=== PATIENT | female | born 1975 | race Two or more races ===

== ENCOUNTER 2016-06-04 14:27 | Emergency (ER) | payer MEDICAID, OTHER ==
[~2016-06-04] VITALS: Ht 154.9 cm; Wt 72.6 kg
--- NOTE | 2016-06-04 14:52 | Emergency Room Report ---
History of Present Illness General Chief Complaint: Upper Extremity Injury Source: Patient Present Illness HPI Patient is a 41-year-old female presented after having increased left upper extremity pain. Patient was noted to have increased pain to her left elbow after falling down stairs and landing on her left side. Patient had increased pain to her left elbow as well as to her left shoulder. She denies any loss of consciousness. She denies any neck or back pain. 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 Allergies: Uncoded Allergies: PENICILLIN (Allergy, Unknown, 06/04/16) Patient History Past Medical History: see triage record Last Menstrual Period: 06/03/16 Reviewed Nursing Documentation: PMH: Agreed, PSxH: Agreed Nursing Documentation-PMH Past Medical History: No History, Except For Hx Cardiac Problems: Yes - high chol Review of Systems All Other Systems: negative except mentioned in HPI Physical Exam Vital Signs Date Time Temp Pulse Resp B/P Pulse Ox O2 Delivery O2 Flow Rate FiO2 06/04/16 14:38 98.1 80 17 132/83 100 Room Air General Appearance: well appearing, no apparent distress, alert, GCS 15 Head: normocephalic, atraumatic ENT: hearing grossly normal, normal voice Neck: full range of motion, supple Respiratory: no respiratory distress, speaking full sentences Cardiovascular #1: normal inspection, regular rate, rhythm Gastrointestinal: normal inspection, normal bowel sounds, non tender, soft Musculoskeletal: back normal, digits/nails normal, no calf tenderness, other - tenderness over lateral mallleolus, decreased ROM Neurologic: normal inspection, alert, oriented x3, responsive, normal gait Psychiatric: mood/affect normal Skin: no rash Medical Decision Making ER Course The patient presented for left elbow pain. Differential diagnosis included but was not limited to fracture, contusion, vascular insufficiency, aortic aneurysm , cellulitis.X-ray imaging of the left shoulder left elbow and forearm are obtained. X-ray imaging of the left elbow 3 views interpreted by radiology showed no definite fracture with normal bony alignment. The patient was placed in a posterior splint. She is advised followup with workers comp physician. Patient placed on modified work. She is advised not to use her left upper extremity. Patient is advised to return if she had any numbness weakness or other concerns. Last Vital Signs Date Time Temp Pulse Resp B/P Pulse Ox O2 Delivery O2 Flow Rate FiO2 3/15/17 14:38 98.1 80 17 132/83 100 Room Air Status: improved Disposition: HOME, SELF-CARE Condition: Stable Scripts Ibuprofen* (MOTRIN*) 600 Mg Tablet 600 MG ORAL Q8H Y for For Pain, #30 TAB 0 Refills Prov: Guzman Dallas 06/04/16 Hydrocodone Bit/Acetaminophen 5-325* (NORCO 5-325*) 1 Each Tablet 1 TAB ORAL Q6H Y for For Pain, #20 TAB 0 Refills Prov: Guzman Dallas 06/04/16 Guzman Dallas Jun 04, 2016 14:52
[2016-06-04] MEDS ORDERED: Norco 5mg/325mg tab ORAL ONE (16:00)
[2016-06-04 16:20] VITALS: BP 136/84
--- NOTE | 2016-06-04 16:21 | Diagnostic Imaging Report ---
Indication: PAIN Technique: 3 views of the left shoulder Comparison: None Findings: No acute fractures or dislocations. Joint spaces are preserved. Impression: Negative
--- NOTE | 2016-06-04 16:22 | Diagnostic Imaging Report ---
Indications: PAIN Technique: Two views of the forearm Comparison: None Findings: No acute fractures or dislocations. No radiopaque foreign body. Normal mineralization. Impression: Negative
--- NOTE | 2016-06-04 16:24 | Diagnostic Imaging Report ---
Indications:PAIN Technique: Three or 4 views of the left elbow Comparison: None Findings:Exam is limited, as the lateral view is not a true lateral. No gross joint effusion demonstrated. There is equivocal slight widening of the radiohumeral joint. No definite acute fractures. Impression:Suggestion of slight widening of the radiohumeral joint. Significance uncertain, could indicate subluxation. Limited exam, as lack of true lateral view precludes confident exclusion of a joint effusion, although no definite evidence of such is seen No definite acute bony trauma
[2016-06-04] MEDS ORDERED: IBUPROFEN600 MG ORAL (17:14)
[2016-06-04] MEDS ORDERED: NORCO 5-325 TA1 EACH ORAL (17:14)
[2016-06-04 17:38] VITALS: BP 136/84
== END 2016-06-04 17:40 | disposition home or self-care (01) ==
LOC: EMR 16:47
DX: M25.522 Pain in left elbow (principal); M25.512 Pain in left shoulder; Z88.0 Allergy status to penicillin; E78.00 Pure hypercholesterolemia, unspecified; M79.632 Pain in left forearm
CPT/HCPCS: 99284

== ENCOUNTER 2016-06-09 19:27 | Emergency (ER) | payer OTHER ==
[~2016-06-09] VITALS: Ht 157.5 cm; Wt 72.6 kg
[~2016-06-09 19:27] MED LIST: IBUPROFEN600 MG ORAL; NORCO 5-325 TA1 EACH ORAL
[2016-06-09 21:30] VITALS: BP 123/70
--- NOTE | 2016-06-09 22:26 | Emergency Room Report ---
History of Present Illness General Chief Complaint: Upper Extremity Injury Source: Patient, Medical Record ([facility]REW VEGAS P[facility]) Present Illness HPI The patient is a 41-year-old female presenting with continued left elbow pain which began 5 days prior after falling onto the elbow. The patient was seen in this emergency department for x-rays were done and patient was diagnosed with an elbow contusion. The patient was placed in a sling and given pain medications and told to follow up with workers compensation. The patient has not followed up with workers compensation ([facility]GAS P[facility] Allergies: Uncoded Allergies: PENICILLIN (Allergy, Unknown, 06/04/16) Patient History Past Medical History: see triage record Pertinent Family History: none Reviewed Nursing Documentation: PMH: Agreed, PSxH: Agreed ([facility]GAS P.A[facility] Nursing Documentation-PMH Hx Cardiac Problems: Yes - High cholesterol ([facility]W [facility]GAS P.A[facility] Physical Exam Vital Signs Date Time Temp Pulse Resp B/P Pulse Ox O2 Delivery O2 Flow Rate FiO2 06/09/16 19:46 98.2 78 16 123/70 99 Room Air ([facility]REW VEGAS P.A.) Medical Decision Making PA Attestation Dr. matt is my supervising physician. Patient management was discussed with my supervising physician ([facility]REW VEGAS [facility]) Diagnostic Impression: Primary Impression: Left elbow contusion Additional Impression: Fracture of medial condyle of elbow ER Course Dr Snider called 11am 06/10 for concern for medial condyle fracture of left elbow Called patient but phone rang and rang - no VM. Asked Electrical Assemblies Supervisor to send letter asking patient to return for long arm splint of left elbow. (CALEB CARD M.D.) Last Vital Signs Date Time Temp Pulse Resp B/P Pulse Ox O2 Delivery O2 Flow Rate FiO2 06/09/16 21:30 98.2 80 16 123/70 99 Room Air ([facility]REW VEGAS P.A[facility] Disposition: HOME, SELF-CARE Condition: Improved Patient Instructions: Elbow Contusion Additional Instructions: I discussed my findings with the patient. All questions and concerns have been answered. Treatment and medication compliance have been addressed. I advised the patient that they need to follow up with PMD in 3-5 days. Return to ED if pain remains or worsens, numbness or tingling occurs, new rash is noticed, fever is noticed, or if needed for any reason. Patient verbalized understanding of discharge instructions. The patient is advised that she needs to followup with workers compensation as soon as possible ANDREW VEGAS Jun 09, 2016 22:26 CALEB CARD M.D. Jun 10, 2016 10:59
[2016-06-09 23:19] VITALS: BP 128/81
--- NOTE | 2016-06-10 11:05 | Diagnostic Imaging Report ---
Indications:PAIN Technique: Three or 4 views of the left elbow Comparison: None Findings:On the AP view, there is suggestion of disruption of the articular surface of the medial humeral condyle, suggestive of a corner fracture of the articular surface. May be visible on the oblique view. It is questionably visible in retrospect an AP view of the prior study, more clearly evident currently. There is equivocally elevation of the anterior and posterior fat pads. Previously described apparent widening of the radiohumeral joint is less evident currently. There is a tiny ossific density adjacent to the lateral humeral condyle. This was not evident on the prior exam, may be obscured by overlapping bone on the prior study. This appears to be smooth and well-corticated, not likely to represent an acute fracture fragment Impression:Findings suspicious for medial humeral condylar fracture. Findings discussed by phone with Dr. Woods in the emergency room at the time of interpretation
== END 2016-06-09 21:30 | disposition home or self-care (01) ==
LOC: EMR 20:17
DX: S50.02XD Contusion of left elbow, subsequent encounter (principal); W19.XXXD Unspecified fall, subsequent encounter; Z88.0 Allergy status to penicillin; S42.402A Unspecified fracture of lower end of left humerus, initial encounter for closed fracture; W19.XXXA Unspecified fall, initial encounter; Y99.0 Civilian activity done for income or pay; Y92.9 Unspecified place or not applicable
CPT/HCPCS: 99282